=== PATIENT | female | born 1990 | race Caucasian/White ===

== ENCOUNTER 2016-04-30 18:43 | Observation (INO) | payer BC ==
[~2016-04-30] VITALS: Ht 165.1 cm; Wt 81.6 kg
[~2016-04-30 18:43] MED LIST: ACET500T33 PO; DIVA500T2 PO; IBUPROFEN PO; PREN1TAB58 PO; TRAZ100T12 PO
[2016-04-30] MEDS ORDERED: IV RINGERS,LACTATED 1000ML 1,000 ML IV SCH (19:04)
[2016-04-30 19:27] LABS: BILIRUBIN,URINE NEGATIVE (NEG); GLUCOSE,URINE NEGATIVE (NEG); NITRITE,URINE NEGATIVE (NEG); PROTEIN,URINE NEGATIVE (NEG-TRACE); UROBILINOGEN,URINE 0.2 mg/dL (0.2 mg/dL)
[2016-04-30 19:36] LABS: BACTERIA,URINE MANY /HPF (0-FEW); RBC,URINE 0 /HPF (0-2); SQUAMOUS EPITHELIAL CELL,UR MOD /LPF
[2016-04-30] MEDS ORDERED: IV RINGERS,LACTATED 1000ML 1,000 ML IV ONE (19:45)
[2016-04-30] MEDS: ONDANSETRON PF 4 MG/2 ML VIAL. IV PRN (20:15)
[2016-04-30] MEDS: IV RINGERS,LACTATED 1000ML 1,000 ML IV SCH (20:47)
[2016-04-30] MEDS ORDERED: TERBUTALINE 1 MG/ML VIAL. SQ ONE (22:00)
[2016-04-30] MEDS ORDERED: ACETAMINOPHEN 325 MG TABLET. PO PRN (22:00)
[2016-04-30 22:15] VITALS: BP 110/66
--- NOTE | 2016-05-01 00:46 | PDOC1 ---
OB - History Hx of Present Care: Good Care Ultrasounds: Normal mid trimester US Obstetrical Complications: None Medical Complications: Gastrointestinal Other Concerns: previous c/s x 2 Past Family/Social History * Past Medical, Surgical, Family and Obstetric Histories reviewed from chart. Rubella: Immune RPR/VDRL: Negative GBS Status: Unknown HBsAG: Negative OB - Chief Complaint & HPI Date of Admission: Date of Admission: Apr 30, 2016 at 18:43 Chief Complaint/History : 3 Para: 2 EGA: 33 Reason for admission: observation Admission Nurse Assessment Rev: Yes Problems: OB - Admission Exam Physical Exam Vitals: VS - Last 72 Hours, by Label Date Time Temp Pulse Resp B/P Pulse Ox O2 Delivery O2 Flow Rate FiO2 04/30/16 22:15 77 110/66 HEENT: Normal Heart: Regular Rate Lungs: Clear Abdomen: Gravid, Soft Extremities: Edema Reflexes: Normal Cervical Dilatation: Fingertip Effacement: 25% Station: Ballotable Membranes: Intact Heart Rate: Normal Accelerations: Accelerations Present Decelerations: No decelerations Contractions on Admission: 6-10 Minutes Apart Intensity: Mild Text A: 33 wks IUP contractions N/V P: IV hydration. Zofran for n/v. Terbutaline for contractions. Continue observation until n/v resolves and contractions resolve. CADEN SANTILLAN Jr, MD May 01, 2016 00:46
[2016-05-01] MEDS: ONDANSETRON PF 4 MG/2 ML VIAL. IV PRN (02:09)
[2016-05-01] MEDS: IV RINGERS,LACTATED 1000ML 1,000 ML IV SCH (02:29)
[2016-05-01] MEDS ORDERED: NICOTINE 14MG PATCH. TD PRN (03:00)
== END 2016-05-01 08:20 | disposition home or self-care (01) ==
LOC: 3 SO LND 18:43
PROVIDERS: ADMIT Obstetrics & Gynecology; ATTEND Obstetrics & Gynecology
DX: O26.893 Other specified pregnancy related conditions, third trimester (principal); R10.9 Unspecified abdominal pain; R51 Headache; O21.2 Late vomiting of pregnancy; Z3A.33 33 weeks gestation of pregnancy
CPT/HCPCS: 81001; 87086; 96361; 96372; 96374; 96376; G0378; G0379; J2405; J3105; J7120